=== PATIENT | female | born 1960 | race Caucasian/White ===

== ENCOUNTER 2017-06-20 08:29 | Day surgery (SDC) | payer MEDICARE, MEDICAID ==
[2015-06-15 09:45] VITALS: BMI 39.9
[~2017-06-20 08:29] MED LIST: Bupivacaine HCl 0.25% PF (10 ml) Inj ONE; Iohexol 240 (50 ml) ONE
[2017-06-20] MEDS ORDERED: Propofol 10 mg/ml Inj (20 ML) ONE (10:13)
[2017-06-20] MEDS ORDERED: MethylPREDNISolone Depo 40 mg/ml Inj ONE (10:19)
[2017-06-20] MEDS ORDERED: Lactated Ringer's 500 ML IV ONE (10:51)
[2017-06-20 11:28] VITALS: O2SAT 100
[2017-06-20 12:16] VITALS: BP 130/65; PULSE 65; RESP 15; TEMP 97.5
--- NOTE | 2017-06-20 12:48 | RAD ---
PROCEDURE: Intraoperative Fluoroscopy. HISTORY: LUMBAR RADICULOPATHY FINDINGS: Fluoroscopic assistance was provided. 22.0 seconds fluoroscopy time utilized. Radiation dose = 0.00284 mGy
--- NOTE | 2017-06-21 08:37 | OP ---
DATE: 06/20/17 PREOPERATIVE DIAGNOSES: 1. Lumbar radiculopathy. 2. Lumbar herniated disc. 3. Myalgias. POSTOPERATIVE DIAGNOSES: 1. Lumbar radiculopathy. 2. Lumbar herniated disc. 3. Myalgias. PROCEDURE: 1. Right and left side, L5-S1 lumbar selective nerve root block. 2. Epidurogram. 3. Trigger point injections. X-RAY: [id number], Fluoroscopy of the spine. ANESTHESIA: MAC/local. SURGEON: Kasi Lr MD COMPLICATIONS: None. BLOOD LOSS: 2 mL. INDICATION: This patient has intractable back and leg pain that is unresponsive to conservative management. The pain is adversely affecting quality of life and activities of daily living. TECHNIQUE: After comprehensive informed consent was obtained, the risks of the procedure explained and questions answered. The patient understands fully the risks are, but not limited to possible bleeding, infection, headache, nervous tissue injury and worsening of their pain. The patient was placed prone on the operating table in a comfortable position. Confirmation of the procedure to be performed was obtained from the patient. The skin overlying the area to be injected was cleaned in a strict sterile fashion using chlorhexidine. Sterile drapes were placed around the area to be injected. Using the C-arm in the anteroposterior view, the levels to be injected were identified under fluoroscope. Then, the C-arm was obliqued in the coronal plane until the facet joint was delineated approximately 25 degrees. The area to be injected was superficially anesthetized with 3 mL of 1% lidocaine using a 27-gauge, 1.25-inch needle. Under fluoroscopic guidance, a 22-guage, 3.5-inch short bevel needle was advanced and directed toward the tip of the pars. In the lateral view, ideal placement of the needle was obtained with the tip in the cephalodorsal corner of the neural foramen. In the anteroposterior plane and under continuous fluoroscopy, 1 mLof non-ionic, water-soluble contrast (Omnipaque 180) was injected to visualize the nerve root and make sure there was no vascular uptake. After negative aspiration for blood, 1 mL of preservative-free 0.5% Marcaine in 80 mg of Depo-Medrol was slowly injected at each level. The patient experienced no painful paresthesia during the injection. Epidurogram: The patient underwent transforaminal epidural steroid injection today. The epidural was observed at the level of L4-L5 under AP and lateral fluoroscopic guidance. A 2 mL of Omnipaque 200 contrast was injected that evenly spread from level L3 to S1 level with posterior-anterior dye spread bilaterally at level of L4-L5 and L5-S1. There appeared to be a moderate degree spondylosis at level of L4-L5 and moderate degree of spondylosis at the level of L5-S1 with disc protrusion at the level of L4-L5. The intervertebral disc height at the level of L4-L5 was slightly less than normal and intervertebral disc height at the level of L5-S1 was well maintained. The neural foramen appeared to be patent. Good epidural dye containment from L3-S1 with intervertebral disc protrusion at the level of L4-L5, maintaining less than normal intervertebral disc height at level L4-L5. Spondylosis noted at the level of L4 through S1. Copies of the images are on file. Trigger Point Injections: A 27-gauge needle was used to inject trigger piont areas in paralumbar muscles, parathoracic muscles, and upper gluteal muscles. Needle was redirected to sciatic nerve branches. Total volume of 10 mL of 0.25% Marcaine. Intermittent aspiration was done throughout with no heme or CSF aspirated throughout. Patient tolerated procedure well. DISPOSITION: Patient was taken to the recovery room in stable condition. Patient was given instructions to follow up in two weeks and was discharged in stable condition. No events or complications. Kasi Lr MD
== END 2017-06-20 12:00 | disposition home or self-care (01) ==
LOC: C.SDS 08:29
PROVIDERS: ATTEND Anesthesiology Pain Medicine
DX: M47.817 Spondylosis without myelopathy or radiculopathy, lumbosacral region (principal); M54.16 Radiculopathy, lumbar region; M51.36 Other intervertebral disc degeneration, lumbar region
CPT/HCPCS: 62323; J1030; J2704; J7120; Q9966

== ENCOUNTER 2018-11-14 13:20 | Outpatient (CLI) | payer MEDICARE, MEDICAID | END 2018-11-14 13:21 | disposition home or self-care (01) | LOC: C.PAT 13:20 | DX: D48.7 Neoplasm of uncertain behavior of other specified sites (principal); Z01.818 Encounter for other preprocedural examination ==

== ENCOUNTER 2018-11-18 09:41 | Day surgery (SDC) | payer MEDICARE, MEDICAID ==
[2018-11-14 13:31] VITALS: BMI 38.2
[2018-11-18] MEDS ORDERED: Bupivacaine 0.25% 20 ML INJ IJ ONE (12:34)
[2018-11-18] MEDS ORDERED: Lidocaine Hydrochloride 20 ML INJ ONE (12:34)
[2018-11-18] MEDS ORDERED: ceFAZolin 1 gm in NS 1 GM/100 ML BAG IVPB ONE (12:35)
[2018-11-18] MEDS ORDERED: Propofol 10 mg/ml Inj (20 ML) ONE (12:46)
[2018-11-18] MEDS ORDERED: Midazolam 2 MG/2 ML VIAL ONE ×2 (12:46→13:10)
[2018-11-18] MEDS ORDERED: Lidocaine Hydrochloride 5 ML INJ ONE (12:49)
[2018-11-18] MEDS ORDERED: Oxycodone/Acetaminophen 5/325 mg Tab PO PRN (13:40)
[2018-11-18] MEDS ORDERED: HYDROmorphone 0.5 mg/0.5 ml ISec IVP PRN (13:42)
[2018-11-18 14:16] VITALS: RESP 14
[2018-11-18 14:27] VITALS: PULSE 60
[2018-11-18 14:34] VITALS: TEMP 98.1
[2018-11-18 14:46] VITALS: O2SAT 100
[2018-11-18 14:59] VITALS: BP 123/69
--- NOTE | 2018-11-19 06:33 | OP ---
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 PROCEDURE PERFORMED: Wide and deep excision (radical resection) soft tissue tumors of bilateral elbow and right hip. SURGEON: Bjorn Khalil MD TYPE OF ANESTHESIA: General. ESTIMATED BLOOD LOSS: 30 mL. POSTOPERATIVE CONDITION: Stable. INDICATIONS FOR SURGERY: This is a 58-year-old female with two 5 cm tumors of the elbows and a 6 cm tumor of the right hip who will now undergo wide and deep excision of all. DESCRIPTION OF PROCEDURE: The patient was taken to the operating room. IV sedation was administered. The bilateral elbows and right hip were prepped and draped. Attention was first turned to the right elbow where an elliptical incision was made to enter the mass. It was dissected into the fascia and removed. Bleeding was controlled using the Bovie. Full thickness tissue flaps were raised including counter incisions and advancement flap closures were performed using multiple layers of Monocryl, subcuticular Monocryl, and skin clips. The above was repeated on the fascia and removed the mass from the left elbow. Attention was then turned to the right hip where again an elliptical incision was made. Tumor was excised into the fascial layer. Bleeding was controlled using the Bovie. A larger pelvic blood vessel was repaired and blood flow confirmed by Doppler. Tissue flaps were raised. Full thickness counter incisions were made and a 40 cm2 advancement flap closure was performed using multiple layers of Monocryl, subcuticular Monocryl and skin clips. The patient tolerated the procedure well and returned to recovery room in stable condition. Bjorn Khalil MD
== END 2018-11-18 15:07 | disposition home or self-care (01) ==
LOC: C.SDS 09:41
PROVIDERS: ATTEND Surgery
DX: D17.22 Benign lipomatous neoplasm of skin and subcutaneous tissue of left arm (principal); D17.21 Benign lipomatous neoplasm of skin and subcutaneous tissue of right arm
CPT/HCPCS: 11406; 12032; 88304; J0690; J1170; J2250; J2704; J3010